=== PATIENT | male | born 1970 | race African-American/Black ===

== ENCOUNTER 2018-12-26 14:59 | Inpatient (IN) | payer MEDICAID ==
[~2018-12-26] VITALS: Ht 177.8 cm; Wt 80.3 kg
[~2018-12-26 14:59] MED LIST: METF-414 PO; [UNRECOGNIZED DRUG - REMARK] SUBCUT
[2018-12-26 16:19] LABS: BASOPHILS % 0.5 % (0.0-2.0); EOSINOPHILS % 0.7 % (0.0-5.0); HEMATOCRIT. 43.4 % (42.0-52.0); HEMOGLOBIN. 14.3 g/dL (14.0-18.0); MEAN CORPUSCULAR HEMOGLOBIN 28.1 pg (28.0-32.0); MEAN CORPUSCULAR VOLUME 85.2 fL (80.0-94.0); MONOCYTES % 8.9 % (2.0-8.0); NEUTROPHILS % 76.9 % (40.0-76.0); PLATELET 329 x1000/uL (130-400); RED BLOOD CELL COUNT 5.09 mill/uL (4.7-6.1); RED CELL DISTRIBUTION WIDTH 16.5 % (11.6-14.6)
[2018-12-26 16:30] LABS: CHLORIDE 108 mEq/L (98-107)
[2018-12-26] MEDS ORDERED: DEXT 5%/0.45% NACL 1000ML 1,000 ML IV ONE (17:08)
[2018-12-26] MEDS ORDERED: DEXTROSE 50% WATER 50ML SYRINGE IV ONE (17:15)
[2018-12-26 18:57] LABS: CLARITY URINE CLEAR (CLEAR); COLOR URINE YELLOW (YELLOW); KETONES URINE TRACE (NEGATIVE); LEUKOCYTE ESTERASE URINE NEGATIVE (NEGATIVE); NITRITE URINE NEGATIVE (NEGATIVE); OCCULT BLOOD URINE TRACE (NEGATIVE); PH URINE 5.5 (4.5-8.0); PROTEIN URINE 1+ (NEGATIVE); SPECIFIC GRAVITY URINE 1.009 (1.005-1.030)
[2018-12-26] MEDS ORDERED: CLONIDINE 0.1MG TABLET PO PRN (20:45)
[2018-12-26] MEDS ORDERED: DOCUSATE SODIUM 100MG CAPSULE PO PRN (20:45)
[2018-12-26] MEDS ORDERED: ONDANSETRON HCL 4MG/2ML INJ IV PRN (20:45)
[2018-12-26] MEDS ORDERED: DIPHENHYDRAMINE 50MG/ML VIAL IV PRN (20:45)
[2018-12-26] MEDS ORDERED: IPRATROPIUM/ALBUTEROL 0.5-3(2.5)MG/3ML NEB INH PRN (20:45)
[2018-12-26] MEDS ORDERED: MAGNESIUM/ALUMINUM HYDROXIDE/SIMETHICONE 30ML UDC PO PRN (20:45)
[2018-12-26] MEDS ORDERED: GUAIFENESIN 200MG/10ML SUGAR FREE UDC PO PRN (20:45)
[2018-12-26] MEDS ORDERED: CEFTRIAXONE 1 G PREMIX 50 ML IV SCH (20:45)
[2018-12-26] MEDS ORDERED: HYDROCODONE/ACETAMINOPHEN 5/325MG TABLET PO PRN (20:45)
[2018-12-26] MEDS ORDERED: ACETAMINOPHEN 325MG TABLET PO PRN (20:45)
[2018-12-26 21:02] LABS: PHOSPHORUS 2.8 mg/dL (2.5-4.9)
[2018-12-26 21:52] VITALS: BP 153/93
[2018-12-26] MEDS ORDERED: DEXTROSE 50% WATER 50ML SYRINGE IV PRN (22:15)
[2018-12-26] MEDS ORDERED: BENA40TA9 PO (22:34)
[2018-12-26] MEDS ORDERED: HUM100IN SQ ×2 (22:43)
[2018-12-26] MEDS: CEFTRIAXONE 1 G PREMIX 50 ML IV SCH (23:20)
[2018-12-27] VITALS: BP 119/65
[2018-12-27 00:40] LABS: CREATINE KINASE MB FRACTION 3.4 ng/mL (0.5-3.6)
[2018-12-27 04:00] VITALS: BP 116/67
[2018-12-27] MEDS: BLOOD SUGAR DIAGNOSTIC STRIP TEST SCH ×4 (06:41→21:08)
[2018-12-27 07:04] LABS: BASOPHILS % 0.7 % (0.0-2.0); EOSINOPHILS % 3.3 % (0.0-5.0); HEMOGLOBIN. 13.5 g/dL (14.0-18.0); LYMPHOCYTES % 26.7 % (20.0-50.0); MEAN CORPUSCULAR HEMOGLOBIN 28.8 pg (28.0-32.0); MEAN CORPUSCULAR VOLUME 85.1 fL (80.0-94.0); MEAN PLATELET VOLUME 9.1 fl (7.4-10.4); MONOCYTES % 8.8 % (2.0-8.0); NEUTROPHILS % 60.5 % (40.0-76.0); PLATELET 303 x1000/uL (130-400); RED BLOOD CELL COUNT 4.71 mill/uL (4.7-6.1); RED CELL DISTRIBUTION WIDTH 16.4 % (11.6-14.6)
[2018-12-27 07:10] LABS: CHLORIDE 106 mEq/L (98-107)
[2018-12-27 07:26] LABS: CREATINE KINASE 544 IU/L (39-308)
[2018-12-27 07:27] LABS: HDL CHOLESTEROL 52 mg/dL (40-59); LDL CHOLESTEROL 68 mg/dL (5-100)
[2018-12-27 07:30] LABS: CREATINE KINASE MB FRACTION 2.4 ng/mL (0.5-3.6)
[2018-12-27 08:00] VITALS: BP 128/71
[2018-12-27] MEDS: INSULIN LISPRO 100 UNITS/ML SUBCUT SCH ×4 (08:37→21:06)
[2018-12-27] MEDS: ENOXAPARIN 40MG/0.4ML SYR SUBCUT SCH (09:00)
[2018-12-27 12:00] VITALS: BP 108/56
[2018-12-27 16:00] VITALS: BP 98/63
[2018-12-27] MEDS: CEFTRIAXONE 1 G PREMIX 50 ML IV SCH (22:45)
[2018-12-28] MEDS: BLOOD SUGAR DIAGNOSTIC STRIP TEST SCH ×2 (06:39→12:49)
[2018-12-28] MEDS ORDERED: INSULIN LISPRO 100 UNITS/ML SUBCUT NR (06:40)
[2018-12-28] MEDS: INSULIN LISPRO 100 UNITS/ML SUBCUT SCH ×2 (06:52→12:49)
[2018-12-28 08:00] VITALS: BP 126/73
[2018-12-28] MEDS: ENOXAPARIN 40MG/0.4ML SYR SUBCUT SCH (09:00)
[2018-12-28 12:00] VITALS: BP 122/71
[2018-12-28 12:04] VITALS: BP 126/73
== END 2018-12-28 14:49 | disposition home or self-care (01) | DRG 420 ==
LOC: ER 14:59 → EDBEDREQ 18:26 → EDBEDREQTM 18:27 → ENRESERV 19:03 → 7WST 21:27
PROVIDERS: ADMIT Internal Medicine; ATTEND Internal Medicine
DX: E11.649 Type 2 diabetes mellitus with hypoglycemia without coma (principal); D72.829 Elevated white blood cell count, unspecified; F17.200 Nicotine dependence, unspecified, uncomplicated; I10 Essential (primary) hypertension; F17.210 Nicotine dependence, cigarettes, uncomplicated; Z79.4 Long term (current) use of insulin; Z83.3 Family history of diabetes mellitus; Z79.899 Other long term (current) drug therapy
CPT/HCPCS: 36415; 80061; 82550; 82553; 82962; 83036; 83735; 84100; 84443; 84484; 93005; 93970; 99285; J0696; J1815; J7050